=== PATIENT | female | born 2005 | race Hispanic/Latino ===

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

== ENCOUNTER 2023-01-27 16:21 | Emergency (ER) | payer OTHER ==
[~2023-01-27] VITALS: Ht 162.6 cm; Wt 48.9 kg
[2023-01-27 18:14] VITALS: BP 114/78
[2023-01-27 18:30] VITALS: BP 98/64
[2023-01-27] MEDS ORDERED: NAPROXEN500 MG PO (18:58)
[2023-01-27 19:00] VITALS: BP 102/60
[2023-01-27 19:15] VITALS: BP 102/60
== END 2023-01-27 19:24 | disposition home or self-care (01) ==
LOC: ED 16:21
DX: S83.92XA Sprain of unspecified site of left knee, initial encounter (principal); Y93.02 Activity, running

== ENCOUNTER 2023-11-26 07:39 | Emergency (ER) | payer OTHER ==
[~2023-11-26] VITALS: Ht 162.6 cm; Wt 47.0 kg
[~2023-11-26 07:39] MED LIST changes: +NAPROXEN500 MG PO
[2023-11-26 08:06] VITALS: BP 101/73
[2023-11-26 08:17] LABS: BASO% 0.7 % (0-3); EOS% 1.9 % (0-8); HEMATOCRIT 39.6 % (37.0-47.0); HEMOGLOBIN 13.4 g/dl (12.0-16.0); IMMATURE GRANULOCYTES 0.2 % (0.0-5.0); LYMPH% 41.6 % (15-41); MEAN CELL VOLUME 91.7 fL CALC (80.0-100.0); MEAN CORPUSCULAR HGB CONC 33.8 g/dL CAL (32.0-36.0); MONO% 8.4 % (2-13); NEUT# 2.52 thou/uL (2.00-7.15); NEUT% 47.2 % (42-76); RED BLOOD COUNT 4.32 mill/uL (4.20-5.60); RED CELL DISTRI WIDTH 12.7 % (11.5-15.5)
[2023-11-26 08:18] LABS: URINE BILIRUBIN - DIPSTICK Negative (NEGATIVE); URINE BLOOD DIPSTICK Negative (NEGATIVE); URINE COLOR Yellow; URINE GLUCOSE - DIPSTICK Negative (NEGATIVE); URINE KETONE Negative (NEGATIVE); URINE LEUK ESTERASE Negative (NEGATIVE); URINE NITRITE - DIPSTICK Negative (Negative); URINE PROTEIN - DIPSTICK Negative (NEG-TRACE); URINE SPECIFIC GRAVITY 1.025
[2023-11-26 08:35] LABS: ALBUMIN 4.4 g/dL (3.2-5.0); ALKALINE PHOSPHATASE 66 u/l (38-126); ANION GAP 15 (6-22 (CALC)); BUN 10 mg/dL (7-17); BUN/CREATININE RATIO 20 (12-20 (CALC)); CARBON DIOXIDE 20 mmol/l (22-30); CHLORIDE 112 mmol/l (95-108); CREATININE 0.5 mg/dL (0.5-1.0); GFR FOR AFR.AMER. > 60 ML/MIN (>=60 (CALC)); GFR OTHER RACES > 60 ML/MIN (>=60 (CALC)); POTASSIUM 3.6 mmol/l (3.5-5.1); SGOT/AST 24 u/l (14-36); SODIUM 143 mmol/l (137-146); TOTAL PROTEIN 7.2 g/dL (6.3-8.2)
[2023-11-26 09:06] LABS: BILIRUBIN, TOTAL 0.6 mg/dL (0.02-1.3)
[2023-11-26 09:14] VITALS: BP 83/52
[2023-11-26 09:30] VITALS: BP 102/63
[2023-11-26 10:00] VITALS: BP 115/69
[2023-11-26 10:14] VITALS: BP 115/69
== END 2023-11-26 10:28 | disposition home or self-care (01) | DRG 392 ==
LOC: ED 07:39
PROVIDERS: Emergency Medicine
DX: K59.00 Constipation, unspecified (principal); R10.9 Unspecified abdominal pain

== ENCOUNTER 2024-10-24 23:25 | Emergency (ER) | payer SELFPAY ==
[~2024-10-24] VITALS: Ht 162.6 cm; Wt 65.0 kg
[~2024-10-24 23:25] MED LIST changes: +BENZONATATE200 MG PO; +NABUMETONE750 MG PO; +ORPHENADRINE100 MG PO; +ZPAK PO
[2024-10-24 23:32] VITALS: BP 101/73
[2024-10-24 23:45] VITALS: BP 99/64
[2024-10-25 00:01] VITALS: BP 99/69
[2024-10-25 00:15] VITALS: BP 107/63
[2024-10-25 00:30] VITALS: BP 107/66
[2024-10-25 00:45] VITALS: BP 98/67
[2024-10-25 01:00] VITALS: BP 115/73
== END 2024-10-25 01:00 | disposition home or self-care (01) | DRG 556 ==
LOC: ED 23:25
DX: M25.561 Pain in right knee (principal)